=== PATIENT | female | born 1965 | race Caucasian/White ===

== ENCOUNTER 2016-03-17 00:16 | Emergency (ER) | payer BC ==
[~2016-03-17] VITALS: Ht 162.6 cm; Wt 64.1 kg
[~2016-03-17 00:16] MED LIST: IBUP-1050 PO; LEVO50TA6 PO; ZOLP10TA PO
[2016-03-17 00:20] VITALS: TEMP 36.4; Ht 162.6 cm; Wt 64.1 kg
[2016-03-17] MEDS ORDERED: PROMETHAZINE HCL INJ 25 MG/ML 1 ML VIAL IM STA (00:28)
[2016-03-17] MEDS ORDERED: MoRPHine SULFATE 4 MG/ML 1 ML CARP\\VIAL IM STA (00:28)
[2016-03-17] MEDS ORDERED: MoRPHine SULFATE 2 MG/ML CARP ONE (00:41)
[2016-03-17 01:03] VITALS: BP 136/89; PULSE 57; O2SAT 97
--- NOTE | 2016-03-17 03:10 | EMERGENCY ROOM VISIT NOTE ---
History First contact with patient: 00:25 Chief Complaint: HEADACHE Stated Complaint: MIGRAINE History of Present Illness The patient is a 51 year old female who presents to the Emergency Room with complaints of headache for the past day described as aching, ranging in severity 6 out of 10 throughout the frontal region similar to prior. Unremarkable imaging in the past. She follows with Dr. Phelan. She tried Motrin with no relief of symptoms. Patient denies sudden onset headache, fever, chills , neck stiffness, cold symptoms, chest pain, dyspnea, weakness, numbness, tingling, vision problems, abdominal pain or any other medical complaints. Review of Systems See HPI for pertinent positives & negatives. A total of 10 systems reviewed and were otherwise negative. Past Medical/Surgical History Medical Problems: (1) Cellulitis of hand, left (2) FAM HX-DIABETES MELLITUS (3) FAM HX-OTH KIDNEY DISEASES (4) FAMILY HISTORY OF OTHER CARDIOVASCULAR DISEASES (5) FAMILY HX-MALIGNANCY NOS (6) Headache (7) Headache (8) Migraine (9) Migraine (10) Migraine (11) MIGRAINE UNSPECIFIED W/O INTRACT MGRN W/O STATUS MIGRAINOSUS (12) PERSONAL HISTORY OF URINARY CALCULI Social History Smoking Status: Never Smoker Alcohol Use: none Drug Use: none Marital Status: single Housing Status: lives with family Occupation Status: employed Current/Historical Medications Scheduled Levothyroxine Sodium (Levothyroxine Sodium), 50 MCG PO DAILY Allergies Coded Allergies: No Known Allergies (Verified , 03/17/16) Physical Exam Vital Signs Date Time Temp Pulse Resp B/P Pulse Ox O2 Delivery O2 Flow Rate FiO2 03/17/16 01:03 57 16 136/89 97 03/17/16 00:20 36.4 69 16 140/89 96 Room Air Pain Rating (0-10): 5.0 Physical Exam VITALS: Vitals are noted on the nurse's note and reviewed by myself. Vital signs stable. GENERAL: Pleasant female, in no acute distress, nondiaphoretic, well-developed well-nourished. SKIN: The skin was without rashes, erythema, edema, or bruising. There is no tenting of the skin. Capillary reflex less than 2 seconds. HEAD: Normocephalic atraumatic. EARS: External auditory canals clear, tympanic membranes pearly smith without erythema or effusion bilaterally. EYES: Pupils equal round and reactive to light and accommodation. Conjunctivae without injection, sclerae without icterus. Extraocular movements intact. NOSE: Patent, turbinates without inflammation or discharge. No sinus tenderness. MOUTH: Mucous membranes moist. Pharynx without erythema or exudate. Uvula midline. Airway patent. Tongue does not deviate. NECK: Supple without nuchal rigidity. No lymphadenopathy. No thyromegaly. Cervical spine is nontender. No JVD. HEART: Regular rate and rhythm without murmurs gallops or rubs. LUNGS: Clear to auscultation bilaterally without wheezes, rales or rhonchi. No dullness to percussion. No retractions or accessory muscle use. ABDOMEN: Positive bowel sounds x 4. Normal tympanic percussion. Soft, nontender, without masses or organomegaly. Ramirez sign negative. No guarding or rebound tenderness. MUSCULOSKELETAL: No muscle atrophy, erythema, or edema noted. NEURO: Patient was alert and oriented to person place and time. Normal sensation to light and sharp touch. No focal neurological deficits. Cranial nerves II through XII grossly intact. No pronator drift. Cerebellar exam intact Medical Decision & Procedures Medications Administered Medications (Trade) Dose Ordered Sig/Shannan Route Start Time Stop Time Status Last Admin Dose Admin Promethazine HCl (Phenergan Inj) 25 mg NOW STAT IM 03/17/16 00:28 03/17/16 00:29 DC 03/17/16 00:44 25 MG Morphine Sulfate (MoRPHine SULFATE INJ) 2 mg STK-MED ONCE .ROUTE 03/17/16 00:41 03/17/16 00:42 DC 03/17/16 00:49 2 MG ED Course Prior records/ancillary studies reviewed. Additional history obtained from family Triage Nursing notes reviewed. The patient's history was concerning for headache. Differential diagnosis: Etiologies such as migraine headache, meningitis, sinusitis, CO exposure, ICH, SAH, infection, tumor, headache, sinus thrombosis, arterial dissection, as well as others were entertained. Physical examination findings: As above. Non-focal. ER treatment provided: Morphine 2 mg IM and Phenergan 25 mg IM per patient stated protocol On reassessment the patient felt better. Diagnostics interpreted by me: Deferred This appears to be consistent with morphine and Phenergan per patient stated protocol. Patient was well-appearing. She is neurovascularly and neurologically intact. No signs of meningitis. She is afebrile and nontoxic. She has a long-standing history of migraines and is well-known to this ER for frequent migraine visits. She is advised follow-up with her neurologist or here in the ER sooner for headache, fevers, neck stiffness, or sinusitis symptoms or as needed. By the evaluation outlined above emergent etiologies such as meningitis, sinusitis, CO exposure, ICH, SAH, infection, temporal arteritis, tumor, sinus thrombosis, arterial dissection, as well as others were deemed relatively unlikely. The pt informed about the findings as listed above. All questions were answered and pleased with the treatment. Return instructions were outlined and the patient was discharged in stable condition. Referral: The patient was referred back to their primary care physician or neurology for follow-up in 2 to 3 days for a recheck of the current condition. Medical Decision As above Impression Primary Impression: Migraine Departure Information Dispostion Home / Self-Care Condition GOOD Referrals Yara Dean (PCP) Forms HOME CARE DOCUMENTATION FORM, IMPORTANT VISIT INFORMATION Patient Instructions Headache Migraine Meds Lifestyle, My [facility] [place] [employer] Additional Instructions DO NOT drive, drink alcohol, operate machinery, or perform dangerous activities today. You were given medications in the ER that can affect your ability to safely function or operate a vehicle. Rest today in a quiet, peaceful, dark environment and get a full 8-10 hrs of sleep tonight. Avoid loud noises, smoke/smoking, alcohol, bright lights, stress, or physical exertion today to minimize the chance the headache may return. Continue current medications. Ibuprofen(Motrin, Advil) may be used for fever or pain. Use 600mg every six hours as needed. Take with food. Avoid using more than 2400mg in a 24 hour period. Do not use 2400mg per day for more than three consecutive days without physician direction. Prolonged inappropriate use can lead to stomach upset or ulcers. (AND/OR) Acetaminophen(Tylenol) may be used for fever or pain. Use 1000mg every six hours as needed. Avoid using more than 3000mg in a 24 hour period. Return to the ER for passing out, worsening headache, vision problems, neck stiffness/pain, fevers, vomiting, worsening of your condition, or as needed. Follow up with your primary physician and/or a neurologist in 2-3 days for a recheck of your current condition. Problem Qualifiers Primary Impression: Migraine Migraine type: without aura Status migrainosus presence: without status migrainosus Intractability: not intractable Qualified Codes: G43.009 - Migraine without aura, not intractable, without status migrainosus
== END 2016-03-17 01:05 | disposition home or self-care (01) ==
LOC: C.EDB 00:17 → C.EDA 01:05
DX: G43.909 Migraine, unspecified, not intractable, without status migrainosus (principal); Z79.899 Other long term (current) drug therapy; Z83.3 Family history of diabetes mellitus; Z82.49 Family history of ischemic heart disease and other diseases of the circulatory system

== ENCOUNTER 2016-05-17 11:51 | Emergency (ER) | payer BC ==
[~2016-05-17] VITALS: Ht 154.9 cm; Wt 64.6 kg
[~2016-05-17 11:51] MED LIST changes: -IBUP-1050 PO; -ZOLP10TA PO
[2016-05-17 11:53] VITALS: BP 134/82; PULSE 63; TEMP 36.4; O2SAT 97; Ht 154.9 cm; Wt 64.6 kg
[2016-05-17] MEDS ORDERED: MoRPHine SULFATE 10 MG/ML CARP/VIAL IM STA (12:03)
[2016-05-17] MEDS ORDERED: PROMETHAZINE HCL INJ 25 MG/ML 1 ML VIAL IM STA (12:03)
--- NOTE | 2016-05-17 12:21 | EMERGENCY ROOM VISIT NOTE ---
History First contact with patient: 11:57 Chief Complaint: HEADACHE Stated Complaint: MIGRAINE HEADACHE History of Present Illness The patient is a 51 year old female who presents to the Emergency Room with complaints of migraine headache which started this morning. The patient states the pain is on the right side of her face and head. The patient denies any visual changes except for photosensitivity. The patient denies any dizziness. The patient admits to nausea but denies any vomiting. The patient states that the symptoms are consistent with her prior migraines. The patient states that she is not getting her migraines as frequently therefore she does not have any home medications at this time. The patient states this is not the worst headache of her life. The patient is also complaining that she thinks she pulled a muscle in her chest. She states she was moving her son last weekend and since that time she has pain in the chest with certain movements. She states the pain has improved. She does not know if that pain has triggered her migraine. She has been taking ibuprofen for the chest discomfort. Review of Systems 10 system review was performed and was negative unless stated otherwise history of present illness. Past Medical/Surgical History Medical Problems: (1) Cellulitis of hand, left (2) FAM HX-DIABETES MELLITUS (3) FAM HX-OTH KIDNEY DISEASES (4) FAMILY HISTORY OF OTHER CARDIOVASCULAR DISEASES (5) FAMILY HX-MALIGNANCY NOS (6) Headache (7) Headache (8) Migraine (9) Migraine (10) Migraine (11) MIGRAINE UNSPECIFIED W/O INTRACT MGRN W/O STATUS MIGRAINOSUS (12) PERSONAL HISTORY OF URINARY CALCULI Social History Smoking Status: Never Smoker Alcohol Use: none Drug Use: none Marital Status: single Housing Status: lives with family Occupation Status: employed Current/Historical Medications Scheduled Levothyroxine Sodium (Levothyroxine Sodium), 50 MCG PO DAILY Allergies Coded Allergies: No Known Allergies (Verified , 05/17/16) Physical Exam Vital Signs Date Time Temp Pulse Resp B/P Pulse Ox O2 Delivery O2 Flow Rate FiO2 05/17/16 11:53 36.4 63 18 134/82 97 Room Air Physical Exam VITAL SIGNS: were reviewed as above. GENERAL: 51-year-old white female appears in no acute distress. SKIN: Warm dry and pink. HEAD: Normocephalic and atraumatic. OROPHARYNX: Is clear and moist TYMPANIC MEMBRANES: clear. NECK: Supple without lymphadenopathy or meningismus. LUNGS: Clear to auscultation without wheezes rales or rhonchi. HEART: Regular rate and rhythm without murmur. CHEST WALL: No gross bony deformity noted. The patient is tender to palpation over the right anterior chest wall. Remainder chest wall is nontender. The patient has increased pain with movement of the right shoulder. EXTREMITIES: Warm and well perfused. NEUROLOGICALLY: Awake alert and oriented without focal deficit. Cranial nerves 2-12 are intact. There is no pronator drift. Cerebellar testing is within normal limits. There is no nystagmus. There is no facial droop. Speech is clear. Vision is grossly normal. MUSCULOSKELETAL: Good muscle tone. No evidence of trauma. Strength is symmetric. Medical Decision & Procedures ED Course The patient was evaluated. The patient was given her normal treatment plan for her migraines which is morphine 2 mg IM and Phenergan 25 mg IM. The patient was reevaluated was feeling much better. The patient was discharged to home in stable condition. Medical Decision Differential includes: Acute intracranial bleed, trauma, meningitis, encephalitis, increased intracranial pressure, mass or mass effect, facial or dental infection, temporal arteritis, CVA, TIA, acute hypertensive emergency, sinusitis, carbon monoxide exposure. The patient presented with her typical migraine headache symptoms therefore no additional diagnostic imaging was performed. Impression Primary Impression: Migraine Additional Impression: Chest wall muscle strain Departure Information Dispostion Home / Self-Care Condition GOOD Referrals Yara Dean (PCP) Forms HOME CARE DOCUMENTATION FORM, IMPORTANT VISIT INFORMATION Patient Instructions [facility] Additional Instructions Go home and rest in a dark room. Do not drive for 8 hours. Ibuprofen 600 mg every 6 hours with food for your chest wall strain. Avoid any strenuous lifting until pain has resolved. If you have more frequent migraines recommend follow-up with your family physician. If symptoms should worsen in the interim , return to ER. Problem Qualifiers Primary Impression: Migraine Migraine type: unspecified Additional Impression: Chest wall muscle strain Encounter type: initial encounter Qualified Codes: S29.011A - Strain of muscle and tendon of front wall of thorax, initial encounter
== END 2016-05-17 12:33 | disposition home or self-care (01) ==
LOC: C.EDB 11:52 → C.EDD 12:33
DX: G43.909 Migraine, unspecified, not intractable, without status migrainosus (principal); S29.011A Strain of muscle and tendon of front wall of thorax, initial encounter; X58.XXXA Exposure to other specified factors, initial encounter; Z83.3 Family history of diabetes mellitus

== ENCOUNTER → 2016-06-01 | Outpatient (CLI) | payer BC ==
--- NOTE | 2016-06-02 13:19 | MAMMOGRAPHY REPORT ---
BILATERAL DIGITAL SCREENING MAMMOGRAM TOMOSYNTHESIS WITH CAD: 06/01/2016 CLINICAL HISTORY: Routine screening. Patient has no complaints. TECHNIQUE: Breast tomosynthesis in addition to standard 2D mammography was performed. Current study was also evaluated with a Computer Aided Detection (CAD) system. COMPARISON: Comparison is made to exams dated: 05/17/2015 mammogram, 04/26/2015 mammogram, 05/08/2015 ammogram [facility] [address], and 02/15/2008. BREAST COMPOSITION: There are scattered areas of fibroglandular density in both breasts. FINDINGS: There is a stable metallic biopsy marker within the right breast, from recent benign stere otactic biopsy. A few scattered stable punctate microcalcifications bilaterally. No new suspicious mass, architectural distortion or cluster of microcalcifications is seen. IMPRESSION: ACR BI-RADS CATEGORY 1: NEGATIVE There is no mammographic evidence of malignancy. A 1 year screening mammogram is recommended. The p atient will receive written notification of the results. Approximately 10% of breast cancers are not detected with mammography. A negative mammographic repor t should not delay biopsy if a clinically suggestive mass is present. Yakelin Young M.D. ay/:06/01/2016 17:33:14 Manufacturing Engineering Intern: Sagrario ASENCIO(Tee)(M), [facility] letter sent: Normal 1/2 BI-RADS Code: ACR BI-RADS Category 1: Negative
== END | disposition home or self-care (01) ==
LOC: C.MAMM 08:09
PROVIDERS: ATTEND Nurse Practitioner Family
DX: Z12.31 Encounter for screening mammogram for malignant neoplasm of breast (principal)

== ENCOUNTER → 2017-06-02 | Outpatient (CLI) | payer OTHER ==
--- NOTE | 2017-06-02 15:13 | MAMMOGRAPHY REPORT ---
BILATERAL DIGITAL SCREENING MAMMOGRAM TOMOSYNTHESIS WITH CAD: 06/02/2017 CLINICAL HISTORY: Routine screening. Patient has no complaints. TECHNIQUE: Breast tomosynthesis in addition to standard 2D mammography was performed. Current study was also evaluated with a Computer Aided Detection (CAD) system. COMPARISON: Comparison is made to exams dated: 06/01/2016 mammogram, 05/17/2015 mammogram, 05/08/2015 ma mmogram, 04/26/2015 mammogram - [facility], and 02/15/2008. BREAST COMPOSITION: There are scattered areas of fibroglandular density in both breasts. FINDINGS: No suspicious masses, calcifications, or areas of architectural distortion are noted in ei ther breast. There has been no significant interval change compared to prior exams. Scattered bilate ral benign-appearing calcifications are not significantly changed. A biopsy clip is again noted with in the right breast. IMPRESSION: ACR BI-RADS CATEGORY 2: BENIGN There is no mammographic evidence of malignancy. A 1 year screening mammogram is recommended. The pa tient will receive written notification of the results. Approximately 10% of breast cancers are not detected with mammography. A negative mammographic report should not delay biopsy if a clinically suggestive mass is present. Mercedez Yates M.D. /:06/02/2017 12:22:56 Electric Crane Operator: America SMITH)([place])([place]), [facility] letter sent: Normal 1/2 BI-RADS Code: ACR BI-RADS Category 2: Benign
== END | disposition home or self-care (01) ==
LOC: C.MAMM 08:43
PROVIDERS: ATTEND Nurse Practitioner Family
DX: Z12.31 Encounter for screening mammogram for malignant neoplasm of breast (principal)